=== PATIENT | female | born 1940 | race Hispanic/Latino ===

== ENCOUNTER 2017-12-19 00:26 | Inpatient (IN) | payer OTHER ==
[~2017-12-19] VITALS: Ht 152.4 cm; Wt 61.9 kg
[2017-12-19 01:04] LABS: MEAN CORPUSCULAR HEMOGLOBIN 26.5 pg (27.0-33.0); NUCLEATED RED BLOOD CELLS 0.1 % (0.0-0.19); RED CELL DISTRIBUTION WIDTH 18.3 % (11.0-15.5)
[2017-12-19 01:16] LABS: BASOPHILS % (AUTO) 0.2 % (0.0-5.0); CREATININE 1.1 mg/dL (0.5-1.5); EOSINOPHILS % (AUTO) 3.6 % (0.0-8.0); LYMPHOCYTES % (AUTO) 19.8 % (21.0-51.0); MEAN CORPUSCULAR HGB CONC 32.5 g/dL (32.0-36.0); MEAN CORPUSCULAR VOLUME 81.7 fL (79-99); MONOCYTES % (AUTO) 8.6 % (3.0-13.0); NEUTROPHILS % (AUTO) 67.8 % (40.0-77.0); PLATELET COUNT (AUTO) 125 K/uL (130-400); POTASSIUM 3.7 mmol/L (3.5-5.1); RED BLOOD CELL COUNT(AUTO) 2.82 MIL/uL (4.00-5.50); WHITE BLOOD COUNT (AUTO) 11.4 K/uL (4.8-10.8)
[2017-12-19] MEDS ORDERED: LEVOFLOXACIN 750 MG/D5W 150 ML 150 ML ONE (01:29)
[2017-12-19] MEDS ORDERED: SODIUM CHLORIDE 0.9% 1000ML 1,000 ML IV ONE (01:29)
[2017-12-19] MEDS ORDERED: ACETAMINOPHEN 325 MG TAB ONE (01:29)
[2017-12-19] MEDS ORDERED: ONDANSETRON HCL 4 MG/2 ML VIAL ONE (01:29)
[2017-12-19] MEDS ORDERED: MORPHINE SULFATE 4 MG/1ML SYG ONE (01:30)
[2017-12-19 01:31] LABS: INR 1.23 (0.85-1.15); PROTHROMBIN TIME 12.9 SEC (9.6-11.6)
[2017-12-19 01:35] LABS: ALBUMIN 2.5 g/dL (3.5-5.0); BILIRUBIN,TOTAL 2.3 mg/dL (0.2-1.0); TOTAL PROTEIN, SERUM 5.5 g/dL (6.0-8.3); TROPONIN I 0.06 ng/mL (0.00-0.06)
[2017-12-19] MEDS ORDERED: IBUPROFEN 400 MG TABLET ONE (01:37)
[2017-12-19 01:39] LABS: APPEARANCE,URINE Clear (CLEAR); BILIRUBIN,URINE Negative (NEGATIVE); COLOR,URINE Yellow (YELLOW); GLUCOSE, URINE (UA) Negative (NEGATIVE); KETONES,URINE Negative (NEGATIVE); LEUKOCYTE ESTERASE ,URINE Small (NEGATIVE); NITRATE,URINE Negative (NEGATIVE); OCCULT BLOOD,URINE Negative (NEGATIVE); PROTEIN,URINE Negative (NEGATIVE)
[2017-12-19 01:44] LABS: BACTERIA,URINE None Seen /HPF (None Seen); RBC,URINE None Seen /HPF (0-1); SQUAMOUS EPITHELIAL CELL,UR Rare /HPF (0-2); WBC,URINE 0-1 /HPF (0-1)
[2017-12-19 05:50] VITALS: BP 131/75
[2017-12-19] MEDS ORDERED: MORPHINE SULFATE 5 MG/ML VIAL IV PRN (06:15)
[2017-12-19] MEDS ORDERED: ONDANSETRON HCL 4 MG/2 ML VIAL IVP PRN (06:15)
[2017-12-19] MEDS: SODIUM CHLORIDE 0.9% 1000ML 1,000 ML IV SCH ×2 (07:03→19:43)
[2017-12-19 07:45] VITALS: BP 120/65
[2017-12-19] MEDS ORDERED: DIGO250T13 PO (08:03)
[2017-12-19] MEDS ORDERED: LOSA1TAB37 PO (08:03)
[2017-12-19] MEDS ORDERED: ALLO300T2 PO (08:03)
[2017-12-19] MEDS ORDERED: PNEUMOCOCCAL VACCINE POLYVALENT 0.5 ML/VIAL [PPV] IM ONE (08:45)
[2017-12-19] MEDS ORDERED: PHARMACY COMMUNICATION MISC SCH (08:45)
[2017-12-19] MEDS: PANTOPRAZOLE 40 MG/VIAL IVP SCH (09:56)
[2017-12-19 11:58] VITALS: BP 97/56
[2017-12-19] MEDS: METRONIDAZOLE 500MG/100ML BAG 100 ML IV SCH ×2 (14:34→21:53)
[2017-12-19 16:00] VITALS: BP 104/52
[2017-12-19 19:00] VITALS: BP 118/61
[2017-12-19] MEDS: [UNRECOGNIZED DRUG - MIXTURE] PO SCH (19:45)
[2017-12-19] MEDS: ALLOPURINOL 300 MG TABLET PO SCH (20:52)
[2017-12-20] VITALS (23 sets, daily range): BP systolic 106–141; BP diastolic 51–88
[2017-12-20] MEDS: SODIUM CHLORIDE 0.9% 1000ML 1,000 ML IV SCH ×3 (02:23→22:15)
[2017-12-20 05:03] LABS: BASOPHILS % (AUTO) 0.5 % (0.0-5.0); EOSINOPHILS % (AUTO) 8.2 % (0.0-8.0); LYMPHOCYTES % (AUTO) 25.2 % (21.0-51.0); MEAN CORPUSCULAR HEMOGLOBIN 26.9 pg (27.0-33.0); MEAN CORPUSCULAR HGB CONC 32.7 g/dL (32.0-36.0); MEAN CORPUSCULAR VOLUME 82.2 fL (79-99); MONOCYTES % (AUTO) 7.5 % (3.0-13.0); NEUTROPHILS % (AUTO) 58.6 % (40.0-77.0); NUCLEATED RED BLOOD CELLS 0.1 % (0.0-0.19); RED BLOOD CELL COUNT(AUTO) 2.07 MIL/uL (4.00-5.50); RED CELL DISTRIBUTION WIDTH 18.3 % (11.0-15.5)
[2017-12-20 05:04] LABS: CREATININE 1.1 mg/dL (0.5-1.5); POTASSIUM 4.4 mmol/L (3.5-5.1)
[2017-12-20 06:03] LABS: PLATELET COUNT (AUTO) 64 K/uL (130-400)
[2017-12-20 06:04] LABS: BASOPHILS % (AUTO) 0.5 % (0.0-5.0); LYMPHOCYTES % (AUTO) 24.6 % (21.0-51.0); MEAN CORPUSCULAR HEMOGLOBIN 27.3 pg (27.0-33.0); MEAN CORPUSCULAR HGB CONC 32.9 g/dL (32.0-36.0); MEAN CORPUSCULAR VOLUME 82.9 fL (79-99); MONOCYTES % (AUTO) 7.6 % (3.0-13.0); NEUTROPHILS % (AUTO) 59.3 % (40.0-77.0); PLATELET COUNT (AUTO) 74 K/uL (130-400); RED BLOOD CELL COUNT(AUTO) 2.17 MIL/uL (4.00-5.50); RED CELL DISTRIBUTION WIDTH 18.5 % (11.0-15.5); WHITE BLOOD COUNT (AUTO) 6.7 K/uL (4.8-10.8)
[2017-12-20] MEDS: METRONIDAZOLE 500MG/100ML BAG 100 ML IV SCH ×3 (06:50→21:00)
[2017-12-20] MEDS: PNEUMOCOCCAL VACCINE POLYVALENT 0.5 ML/VIAL [PPV] IM SCH (08:45)
[2017-12-20] MEDS: PANTOPRAZOLE 40 MG/VIAL IVP SCH (09:41)
[2017-12-20] MEDS: LOSARTAN/HYDROCHLOROTHIAZIDE 50-12.5MG TABLET PO SCH (14:42)
[2017-12-20] MEDS: DIGOXIN 250 MCG TABLET PO SCH (14:42)
[2017-12-20 14:47] LABS: HEMATOCRIT 29.2 % (36-48)
[2017-12-20] MEDS: ALLOPURINOL 300 MG TABLET PO SCH (21:00)
[2017-12-20] MEDS: [UNRECOGNIZED DRUG - MIXTURE] PO SCH (21:00)
[2017-12-20] MEDS: LEVOFLOXACIN 500 MG/D5W 100 ML 100 ML IV SCH (22:54)
[2017-12-21] VITALS: BP 148/71
[2017-12-21 04:00] VITALS: BP 138/69
[2017-12-21] MEDS: METRONIDAZOLE 500MG/100ML BAG 100 ML IV SCH ×3 (04:58→20:43)
[2017-12-21 07:00] VITALS: BP 143/67
[2017-12-21] MEDS: DIGOXIN 250 MCG TABLET PO SCH (08:50)
[2017-12-21] MEDS: SODIUM CHLORIDE 0.9% 1000ML 1,000 ML IV SCH ×2 (08:50→17:02)
[2017-12-21] MEDS: LOSARTAN/HYDROCHLOROTHIAZIDE 50-12.5MG TABLET PO SCH (08:50)
[2017-12-21] MEDS: PANTOPRAZOLE SODIUM 40 MG TABLET.DR PO SCH (08:50)
[2017-12-21 11:00] VITALS: BP 142/70
[2017-12-21 14:29] LABS: HEMATOCRIT 25.5 % (36-48)
[2017-12-21 16:00] VITALS: BP 126/72
[2017-12-21 19:00] VITALS: BP 154/69
[2017-12-21] MEDS: ALLOPURINOL 300 MG TABLET PO SCH (20:43)
[2017-12-21] MEDS: [UNRECOGNIZED DRUG - MIXTURE] PO SCH (20:43)
[2017-12-22] VITALS (7 sets, daily range): BP systolic 114–149; BP diastolic 60–80
[2017-12-22] MEDS: SODIUM CHLORIDE 0.9% 1000ML 1,000 ML IV SCH (04:13)
[2017-12-22] MEDS: METRONIDAZOLE 500MG/100ML BAG 100 ML IV SCH ×3 (05:10→22:07)
[2017-12-22 06:42] LABS: CREATININE 0.9 mg/dL (0.5-1.5); POTASSIUM 3.6 mmol/L (3.5-5.1)
[2017-12-22 08:23] LABS: BASOPHILS % (MANUAL) 1 % (0-2); EOSINOPHILS % (MANUAL) 12 % (1-6); LYMPHOCYTES % (MANUAL) 19 % (22-44); MAN.DIFF COMMENT-IMPRESSION MANUAL DIFFERENTIAL; MONOCYTES % (MANUAL) 8 % (2-9); REACTIVE LYMPHOCYTES 2 % (0-0); SEGMENTED NEUTROPHILS % 58 % (40-70)
[2017-12-22 08:24] LABS: PLATELET MORPHOLOGY COMMENT DECREASED
[2017-12-22 08:34] LABS: HEMATOCRIT 26.4 % (36-48); MEAN CORPUSCULAR HGB CONC 32.8 g/dL (32.0-36.0); MEAN CORPUSCULAR VOLUME 85.3 fL (79-99); NUCLEATED RED BLOOD CELLS 0.2 % (0.0-0.19); PLATELET COUNT (AUTO) 75 K/uL (130-400); RED CELL DISTRIBUTION WIDTH 18.3 % (11.0-15.5); WHITE BLOOD COUNT (AUTO) 4.4 K/uL (4.8-10.8)
[2017-12-22] MEDS ORDERED: NITR50CA PO (08:59)
[2017-12-22] MEDS: PANTOPRAZOLE SODIUM 40 MG TABLET.DR PO SCH (10:56)
[2017-12-22] MEDS: DIGOXIN 250 MCG TABLET PO SCH (10:56)
[2017-12-22] MEDS: LOSARTAN/HYDROCHLOROTHIAZIDE 50-12.5MG TABLET PO SCH (10:56)
[2017-12-22] MEDS: PNEUMOCOCCAL VACCINE POLYVALENT 0.5 ML/VIAL [PPV] IM SCH (10:59)
[2017-12-22 14:01] LABS: HEMATOCRIT 27.3 % (36-48)
[2017-12-22] MEDS: LEVOFLOXACIN 500 MG/D5W 100 ML 100 ML IV SCH (20:52)
[2017-12-22] MEDS: ALLOPURINOL 300 MG TABLET PO SCH (20:52)
[2017-12-22] MEDS: [UNRECOGNIZED DRUG - MIXTURE] PO SCH (21:00)
[2017-12-22] MEDS ORDERED: DIPHENOXYLATE HCL/ATROPINE 2.5/0.025 MG TAB PO ONE (21:15)
[2017-12-23 01:59] LABS: HEMATOCRIT 25.2 % (36-48)
[2017-12-23 03:49] VITALS: BP 105/55
[2017-12-23] MEDS: METRONIDAZOLE 500MG/100ML BAG 100 ML IV SCH (06:00)
[2017-12-23] MEDS: PANTOPRAZOLE SODIUM 40 MG TABLET.DR PO SCH (06:59)
[2017-12-23 09:07] VITALS: BP 127/64
[2017-12-23] MEDS: LOSARTAN/HYDROCHLOROTHIAZIDE 50-12.5MG TABLET PO SCH (09:24)
[2017-12-23] MEDS: DIGOXIN 250 MCG TABLET PO SCH (09:25)
[2017-12-23 11:47] VITALS: BP 136/69
== END 2017-12-23 12:15 | disposition home or self-care (01) | DRG 384 ==
LOC: EDH 00:26 → EDHIP 00:27 → 3DH 05:28
PROVIDERS: ADMIT Internal Medicine; ATTEND Internal Medicine
PROC: 3E02340 Introduction of Influenza Vaccine into Muscle, Percutaneous Approach (ICD-10-PCS; 2017-12-19)
PROC: 3E0234Z Introduction of Serum, Toxoid and Vaccine into Muscle, Percutaneous Approach (ICD-10-PCS; 2017-12-19)
PROC: 0DB68ZX Excision of Stomach, Via Natural or Artificial Opening Endoscopic, Diagnostic (ICD-10-PCS; principal; 2017-12-20)
PROC: 30233N1 Transfusion of Nonautologous Red Blood Cells into Peripheral Vein, Percutaneous Approach (ICD-10-PCS; 2017-12-20)
DX: K25.9 Gastric ulcer, unspecified as acute or chronic, without hemorrhage or perforation (principal); N39.0 Urinary tract infection, site not specified; D62 Acute posthemorrhagic anemia; K52.9 Noninfective gastroenteritis and colitis, unspecified; K92.1 Melena; N20.0 Calculus of kidney; I10 Essential (primary) hypertension; K31.89 Other diseases of stomach and duodenum; M81.0 Age-related osteoporosis without current pathological fracture; Z88.0 Allergy status to penicillin; Z91.018 Allergy to other foods
CPT/HCPCS: 36415; 36430; 43239; 71045; 74176; 80048; 80053; 80162; 81001; 82270; 82550; 83605; 83630; 83874; 84484; 85014; 85018; 85025; 85610; 85730; 86850; 86900; 86901; 86922; 87040; 87046; 87077; 87088; 87186; 87324; 88305; 90732; 93005; 99291; C9113; J1956; J2270; J2405; J3490; J7030; P9016; Q2038

== ENCOUNTER 2017-12-31 06:58 | Inpatient (IN) | payer OTHER ==
[2017-12-31] VITALS (17 sets, daily range): BP systolic 72–105; BP diastolic 39–62
[~2017-12-31] VITALS: Ht 144.8 cm; Wt 81.2 kg
[~2017-12-31 06:58] MED LIST: ALLO300T2 PO; DIGO250T13 PO; LOSA1TAB37 PO; NITR50CA PO
[2017-12-31 07:21] LABS: BASOPHILS % (AUTO) 1.4 % (0.0-5.0); EOSINOPHILS % (AUTO) 2.9 % (0.0-8.0); HEMATOCRIT 27.7 % (36-48); LYMPHOCYTES % (AUTO) 25.5 % (21.0-51.0); MEAN CORPUSCULAR HEMOGLOBIN 27.7 pg (27.0-33.0); MEAN CORPUSCULAR HGB CONC 32.7 g/dL (32.0-36.0); MEAN CORPUSCULAR VOLUME 84.6 fL (79-99); MONOCYTES % (AUTO) 6.4 % (3.0-13.0); NEUTROPHILS % (AUTO) 63.8 % (40.0-77.0); NUCLEATED RED BLOOD CELLS 0.1 % (0.0-0.19); PLATELET COUNT (AUTO) 102 K/uL (130-400); RED BLOOD CELL COUNT(AUTO) 3.27 MIL/uL (4.00-5.50); RED CELL DISTRIBUTION WIDTH 17.2 % (11.0-15.5); WHITE BLOOD COUNT (AUTO) 5.1 K/uL (4.8-10.8)
[2017-12-31] MEDS ORDERED: ONDANSETRON HCL 4 MG/2 ML VIAL ONE (07:23)
[2017-12-31] MEDS ORDERED: MORPHINE SULFATE 8 MG/ML VIAL ONE ×2 (07:24→09:33)
[2017-12-31 07:29] LABS: CREATININE 1.1 mg/dL (0.5-1.5); POTASSIUM 3.7 mmol/L (3.5-5.1)
[2017-12-31 07:34] LABS: ALBUMIN 2.3 g/dL (3.5-5.0); BILIRUBIN,TOTAL 2.5 mg/dL (0.2-1.0); TOTAL PROTEIN, SERUM 5.5 g/dL (6.0-8.3)
[2017-12-31 07:47] LABS: INR 1.31 (0.85-1.15); PROTHROMBIN TIME 13.7 SEC (9.6-11.6)
[2017-12-31 08:54] LABS: APPEARANCE,URINE Clear (CLEAR); BILIRUBIN,URINE Small (NEGATIVE); COLOR,URINE Dark Yellow (YELLOW); GLUCOSE, URINE (UA) Negative (NEGATIVE); KETONES,URINE Trace mg/dL (NEGATIVE); LEUKOCYTE ESTERASE ,URINE Small (NEGATIVE); NITRATE,URINE Negative (NEGATIVE); OCCULT BLOOD,URINE Negative (NEGATIVE); PH,URINE 6.5 (5.0-8.0); PROTEIN,URINE Negative (NEGATIVE)
[2017-12-31 09:12] LABS: BACTERIA,URINE Rare /HPF (None Seen); RBC,URINE 0-1 /HPF (0-1); SQUAMOUS EPITHELIAL CELL,UR Rare /HPF (0-2); WBC,URINE 0-1 /HPF (0-1)
[2017-12-31] MEDS: SODIUM CHLORIDE 0.9% 1000ML 1,000 ML IV SCH ×2 (09:27→18:19)
[2017-12-31] MEDS ORDERED: MORPHINE SULFATE 2 MG/ML 1ML SYG IV PRN (09:30)
[2017-12-31] MEDS: LEVOFLOXACIN 500 MG/D5W 100 ML 100 ML IV SCH (09:30)
[2017-12-31] MEDS ORDERED: SODIUM CHLORIDE 0.9% 500ML 500 ML IV ONE (09:44)
[2017-12-31] MEDS ORDERED: SODIUM CHLORIDE 0.9% 1000ML 1,000 ML IV ONE ×2 (12:10→14:10)
[2017-12-31] MEDS ORDERED: LEVOFLOXACIN 500 MG/D5W 100 ML 100 ML ONE (13:07)
[2017-12-31] MEDS: METRONIDAZOLE 500MG/100ML BAG 100 ML IV SCH ×2 (14:00→21:01)
[2017-12-31 14:56] LABS: HEMATOCRIT 24.5 % (36-48)
[2017-12-31] MEDS ORDERED: OCTREOTIDE ACETATE 1,000 MCG in SODIUM CHLORIDE 0.9% 95 ML IV SCH (17:30)
[2017-12-31] MEDS: ALBUMIN (HUMAN) 5% 250 ML IV SCH (18:18)
[2017-12-31] MEDS: PANTOPRAZOLE SODIUM 80 MG in SODIUM CHLORIDE 0.9% 100 ML IV SCH (18:18)
[2017-12-31 18:56] LABS: HEMATOCRIT 26.8 % (36-48)
[2017-12-31] MEDS: ONDANSETRON HCL 4 MG/2 ML VIAL IV PRN (23:09)
[2017-12-31] MEDS: HYDROMORPHONE 1 MG/1 ML AMP IVP PRN (23:10)
[2017-12-31 23:46] LABS: HEMATOCRIT 25.9 % (36-48)
[2018-01-01] VITALS (47 sets, daily range): BP systolic 68–137; BP diastolic 38–67
[2018-01-01] MEDS: ALBUMIN (HUMAN) 5% 250 ML IV SCH ×3 (00:24→16:38)
[2018-01-01] MEDS ORDERED: NOREPINEPHRINE 4MG/NS 250ML 4 MG/250 ML IV.SOLN IV SCH (01:00)
[2018-01-01] MEDS ORDERED: SODIUM CHLORIDE 0.9% 1000ML 1,000 ML IV SCH (01:00)
[2018-01-01] MEDS ORDERED: VANCOMYCIN PROTOCOL PER PHARMACY IV SCH (01:00)
[2018-01-01] MEDS ORDERED: SODIUM CHLORIDE 0.9% 1000ML 1,000 ML IV ONE (01:00)
[2018-01-01 01:09] LABS: BASOPHILS % (AUTO) 2.7 % (0.0-5.0); EOSINOPHILS % (AUTO) 0.1 % (0.0-8.0); HEMATOCRIT 24.2 % (36-48); LYMPHOCYTES % (AUTO) 6.8 % (21.0-51.0); MEAN CORPUSCULAR HGB CONC 31.4 g/dL (32.0-36.0); MEAN CORPUSCULAR VOLUME 85.9 fL (79-99); MONOCYTES % (AUTO) 6.8 % (3.0-13.0); NEUTROPHILS % (AUTO) 83.6 % (40.0-77.0); NUCLEATED RED BLOOD CELLS 0.1 % (0.0-0.19); PLATELET COUNT (AUTO) 15 K/uL (130-400); RED BLOOD CELL COUNT(AUTO) 2.81 MIL/uL (4.00-5.50); RED CELL DISTRIBUTION WIDTH 17.2 % (11.0-15.5); WHITE BLOOD COUNT (AUTO) 8.6 K/uL (4.8-10.8)
[2018-01-01] MEDS ORDERED: NOREPINEPHRINE 4MG/NS 250ML 250 ML IV SCH (01:15)
[2018-01-01 04:12] LABS: ABG BASE EXCESS -5.9 mmol/L (-2.0-3.0); ABG HCO3 19.6 mmol/L (21.0-28.0); ABG PCO2 39 mmHg (32-45)
[2018-01-01] MEDS: SODIUM CHLORIDE 0.9% 1000ML 1,000 ML IV SCH ×3 (04:32→22:26)
[2018-01-01] MEDS: METRONIDAZOLE 500MG/100ML BAG 100 ML IV SCH ×3 (05:09→21:10)
[2018-01-01] MEDS ORDERED: VANCOMYCIN 1.5 GM in SODIUM CHLORIDE 0.9% 250 ML IV SCH (06:30)
[2018-01-01] MEDS ORDERED: COMPOUND IV REFRIGERATED 1 EACH IVSOLN MISC PRN (06:45)
[2018-01-01 06:51] LABS: ALBUMIN 2.4 g/dL (3.5-5.0); BILIRUBIN,TOTAL 2.9 mg/dL (0.2-1.0); CREATININE 1.5 mg/dL (0.5-1.5); MAGNESIUM 1.3 mg/dL (1.80-2.40); PHOSPHORUS 3.6 mg/dL (2.5-4.9); POTASSIUM 4.7 mmol/L (3.5-5.1); TOTAL PROTEIN, SERUM 4.9 g/dL (6.0-8.3)
[2018-01-01 06:59] LABS: INR 1.47 (0.85-1.15); PARTIAL THROMBOPLASTIN TIME 39.7 SEC (26.3-35.5); PROTHROMBIN TIME 15.3 SEC (9.6-11.6)
[2018-01-01 07:05] LABS: BASOPHILS % (AUTO) 0.4 % (0.0-5.0); EOSINOPHILS % (AUTO) 0.1 % (0.0-8.0); HEMATOCRIT 24.3 % (36-48); LYMPHOCYTES % (AUTO) 10.3 % (21.0-51.0); MEAN CORPUSCULAR HEMOGLOBIN 28.3 pg (27.0-33.0); MEAN CORPUSCULAR HGB CONC 32.7 g/dL (32.0-36.0); MEAN CORPUSCULAR VOLUME 86.6 fL (79-99); MONOCYTES % (AUTO) 8.3 % (3.0-13.0); NEUTROPHILS % (AUTO) 80.9 % (40.0-77.0); RED BLOOD CELL COUNT(AUTO) 2.81 MIL/uL (4.00-5.50); RED CELL DISTRIBUTION WIDTH 17.4 % (11.0-15.5); WHITE BLOOD COUNT (AUTO) 9.3 K/uL (4.8-10.8)
[2018-01-01 07:10] LABS: PLATELET COUNT (AUTO) 69 K/uL (130-400)
[2018-01-01] MEDS: PANTOPRAZOLE SODIUM 80 MG in SODIUM CHLORIDE 0.9% 100 ML IV SCH (08:31)
[2018-01-01] MEDS ORDERED: PANTOPRAZOLE SODIUM 40 MG TABLET.DR PO SCH (09:00)
[2018-01-01] MEDS: LEVOFLOXACIN 500 MG/D5W 100 ML 100 ML IV SCH (09:44)
[2018-01-01 12:23] LABS: HEMATOCRIT 23.5 % (36-48)
[2018-01-01] MEDS ORDERED: MAGNESIUM 4GM PREMIX 100ML 100 ML IV ONE (12:45)
[2018-01-01] MEDS: HYDROMORPHONE 1 MG/1 ML AMP IVP PRN ×2 (12:53→16:48)
[2018-01-01] MEDS: PANTOPRAZOLE 40 MG/VIAL IVP SCH (20:04)
[2018-01-02] VITALS (26 sets, daily range): BP systolic 104–171; BP diastolic 38–90
[2018-01-02 00:35] LABS: HEMATOCRIT 21.5 % (36-48)
[2018-01-02] MEDS: ALBUMIN (HUMAN) 5% 250 ML IV SCH (01:09)
[2018-01-02] MEDS: HYDROMORPHONE 1 MG/1 ML AMP IVP PRN ×2 (02:48→23:58)
[2018-01-02] MEDS: METRONIDAZOLE 500MG/100ML BAG 100 ML IV SCH (05:04)
[2018-01-02] MEDS: SODIUM CHLORIDE 0.9% 1000ML 1,000 ML IV SCH ×3 (05:04→18:31)
[2018-01-02 05:54] LABS: BASOPHILS % (AUTO) 0.1 % (0.0-5.0); EOSINOPHILS % (AUTO) 0.4 % (0.0-8.0); LYMPHOCYTES % (AUTO) 11.8 % (21.0-51.0); MEAN CORPUSCULAR HEMOGLOBIN 27.8 pg (27.0-33.0); MEAN CORPUSCULAR HGB CONC 32.3 g/dL (32.0-36.0); MEAN CORPUSCULAR VOLUME 86.1 fL (79-99); NEUTROPHILS % (AUTO) 76.7 % (40.0-77.0); NUCLEATED RED BLOOD CELLS 0.1 % (0.0-0.19); PLATELET COUNT (AUTO) 65 K/uL (130-400); RED BLOOD CELL COUNT(AUTO) 2.34 MIL/uL (4.00-5.50); RED CELL DISTRIBUTION WIDTH 17.4 % (11.0-15.5); WHITE BLOOD COUNT (AUTO) 5.6 K/uL (4.8-10.8)
[2018-01-02 06:03] LABS: HEMATOCRIT 20.2 % (36-48)
[2018-01-02 06:09] LABS: INR 1.74 (0.85-1.15); PARTIAL THROMBOPLASTIN TIME 59.9 SEC (26.3-35.5); PROTHROMBIN TIME 18.1 SEC (9.6-11.6)
[2018-01-02 06:13] LABS: ALBUMIN 2.5 g/dL (3.5-5.0); BILIRUBIN,TOTAL 2.9 mg/dL (0.2-1.0); CREATININE 1.8 mg/dL (0.5-1.5); MAGNESIUM 2.2 mg/dL (1.80-2.40); POTASSIUM 4.3 mmol/L (3.5-5.1); TOTAL PROTEIN, SERUM 4.6 g/dL (6.0-8.3)
[2018-01-02] MEDS ORDERED: SODIUM CHLORIDE 0.9% 250 ML IV ONE ×2 (08:15→14:32)
[2018-01-02] MEDS ORDERED: VANCOMYCIN 1GM+NS 250ML 250 ML IV SCH (09:00)
[2018-01-02] MEDS: PANTOPRAZOLE 40 MG/VIAL IVP SCH ×2 (09:27→21:16)
[2018-01-02] MEDS: LEVOFLOXACIN 500 MG/D5W 100 ML 100 ML IV SCH (09:27)
[2018-01-02] MEDS: LACTATED RINGERS 1000ML 1,000 ML IV SCH (13:15)
[2018-01-02] MEDS ORDERED: CLINIMIX E 5%-15% 2,000 ML IV SCH (14:00)
[2018-01-02] MEDS: MEROPENEM 1 GM VIAL IVP SCH (14:36)
[2018-01-02 14:54] LABS: HEMATOCRIT 27.4 % (36-48)
[2018-01-02] MEDS: VANCOMYCIN 1GM+NS 250ML 250 ML IV SCH (21:16)
[2018-01-02 23:04] LABS: HEMATOCRIT 26.1 % (36-48)
[2018-01-03] VITALS (26 sets, daily range): BP systolic 128–184; BP diastolic 59–101
[2018-01-03] MEDS: SODIUM CHLORIDE 0.9% 1000ML 1,000 ML IV SCH ×2 (01:11→07:39)
[2018-01-03] MEDS: MEROPENEM 1 GM VIAL IVP SCH ×2 (02:16→15:24)
[2018-01-03] MEDS: LACTATED RINGERS 1000ML 1,000 ML IV SCH (02:35)
[2018-01-03 03:39] LABS: BASOPHILS % (AUTO) 0.1 % (0.0-5.0); EOSINOPHILS % (AUTO) 0.2 % (0.0-8.0); HEMATOCRIT 26.2 % (36-48); LYMPHOCYTES % (AUTO) 6.6 % (21.0-51.0); MEAN CORPUSCULAR HEMOGLOBIN 27.6 pg (27.0-33.0); MEAN CORPUSCULAR HGB CONC 32.1 g/dL (32.0-36.0); MONOCYTES % (AUTO) 11.8 % (3.0-13.0); NEUTROPHILS % (AUTO) 81.3 % (40.0-77.0); NUCLEATED RED BLOOD CELLS 0.7 % (0.0-0.19); PLATELET COUNT (AUTO) 61 K/uL (130-400); RED BLOOD CELL COUNT(AUTO) 3.05 MIL/uL (4.00-5.50); WHITE BLOOD COUNT (AUTO) 7.3 K/uL (4.8-10.8)
[2018-01-03 03:58] LABS: ALBUMIN 2.5 g/dL (3.5-5.0); BILIRUBIN,TOTAL 4.8 mg/dL (0.2-1.0); CREATININE 1.7 mg/dL (0.5-1.5); MAGNESIUM 2.4 mg/dL (1.80-2.40); PHOSPHORUS 2.2 mg/dL (2.5-4.9); POTASSIUM 4.1 mmol/L (3.5-5.1)
[2018-01-03 04:20] LABS: ABG BASE EXCESS -9.7 mmol/L (-2.0-3.0); ABG HCO3 14.2 mmol/L (21.0-28.0); ABG OXYGEN SATURATION 96.1 % (95.0-99.0); ABG PCO2 27 mmHg (32-45)
[2018-01-03 04:35] LABS: INR 1.58 (0.85-1.15); PROTHROMBIN TIME 16.4 SEC (9.6-11.6)
[2018-01-03] MEDS ORDERED: PHARMACY COMMUNICATION MISC SCH (09:00)
[2018-01-03] MEDS ORDERED: FUROSEMIDE 10 MG/ML 2ML VIAL IV SCH (09:00)
[2018-01-03] MEDS ORDERED: PANTOPRAZOLE SODIUM 40 MG TABLET.DR PO SCH (09:00)
[2018-01-03] MEDS: FAMOTIDINE/PF 20 MG/2 ML VIAL IV SCH (09:21)
[2018-01-03] MEDS: PHYTONADIONE 10 MG in SODIUM CHLORIDE 0.9% 50 ML IV SCH (09:33)
[2018-01-03] MEDS: HYDROMORPHONE 1 MG/1 ML AMP IVP PRN ×2 (09:46→23:44)
[2018-01-03] MEDS: ONDANSETRON HCL 4 MG/2 ML VIAL IV PRN (09:50)
[2018-01-03] MEDS ORDERED: GLUCAGON 1MG KIT 1 MG ML IM PRN (11:45)
[2018-01-03] MEDS ORDERED: DEXTROSE 50%-WATER 50 ML DISP.SYRIN IV PRN (11:45)
[2018-01-03] MEDS: INSULIN HUMULIN R 100 UNIT/ML 3ML SQ SCH ×2 (12:25→18:00)
[2018-01-03] MEDS: CLINIMIX E 5%-15% 2,000 ML IV SCH (18:03)
[2018-01-03] MEDS: VANCOMYCIN 1GM+NS 250ML 250 ML IV SCH (18:43)
[2018-01-03] MEDS: FUROSEMIDE 10 MG/ML 2ML VIAL IV SCH (20:18)
[2018-01-03] MEDS ORDERED: METOPROLOL TARTRATE 1 MG/ML 5ML VIAL IV PRN (22:00)
[2018-01-03] MEDS ORDERED: METOPROLOL TARTRATE 1 MG/ML 5ML VIAL IV ONE (22:06)
[2018-01-04] VITALS (24 sets, daily range): BP systolic 121–164; BP diastolic 70–111
[2018-01-04] MEDS: MEROPENEM 1 GM VIAL IVP SCH ×2 (01:27→14:24)
[2018-01-04 03:30] LABS: BASOPHILS % (AUTO) 0.5 % (0.0-5.0); EOSINOPHILS % (AUTO) 0.9 % (0.0-8.0); HEMATOCRIT 28.1 % (36-48); LYMPHOCYTES % (AUTO) 10.5 % (21.0-51.0); MEAN CORPUSCULAR HEMOGLOBIN 28.2 pg (27.0-33.0); MEAN CORPUSCULAR HGB CONC 32.9 g/dL (32.0-36.0); MEAN CORPUSCULAR VOLUME 85.7 fL (79-99); NEUTROPHILS % (AUTO) 73.1 % (40.0-77.0); NUCLEATED RED BLOOD CELLS 0.6 % (0.0-0.19); PLATELET COUNT (AUTO) 63 K/uL (130-400); RED BLOOD CELL COUNT(AUTO) 3.28 MIL/uL (4.00-5.50); RED CELL DISTRIBUTION WIDTH 17.6 % (11.0-15.5); WHITE BLOOD COUNT (AUTO) 9.7 K/uL (4.8-10.8)
[2018-01-04 03:41] LABS: CREATININE 1.7 mg/dL (0.5-1.5); POTASSIUM 4.3 mmol/L (3.5-5.1)
[2018-01-04] MEDS: INSULIN HUMULIN R 100 UNIT/ML 3ML SQ SCH ×4 (06:00→17:46)
[2018-01-04] MEDS: HYDROMORPHONE 1 MG/1 ML AMP IVP PRN ×2 (08:10→17:20)
[2018-01-04] MEDS: FUROSEMIDE 10 MG/ML 2ML VIAL IV SCH ×2 (08:11→21:22)
[2018-01-04] MEDS: FAMOTIDINE/PF 20 MG/2 ML VIAL IV SCH (08:11)
[2018-01-04] MEDS ORDERED: FLUCONAZOLE 400 MG/NS 200 ML 200 ML IV SCH (09:15)
[2018-01-04] MEDS: FAT EMULSIONS 20% 250ML 250 ML IV SCH (10:00)
[2018-01-04] MEDS ORDERED: FAT EMULSIONS 20% 250ML 250 ML IV SCH (10:00)
[2018-01-04] MEDS: PHYTONADIONE 10 MG in SODIUM CHLORIDE 0.9% 50 ML IV SCH (10:45)
[2018-01-04 11:57] LABS: INR 1.57 (0.85-1.15); PARTIAL THROMBOPLASTIN TIME 47.3 SEC (26.3-35.5); PROTHROMBIN TIME 16.3 SEC (9.6-11.6)
[2018-01-04] MEDS ORDERED: HYDROMORPHONE 1 MG/1 ML AMP IVP ONE (17:30)
[2018-01-04] MEDS: CLINIMIX E 5%-15% 2,000 ML IV SCH (17:43)
[2018-01-05] VITALS (23 sets, daily range): BP systolic 99–155; BP diastolic 54–108
[2018-01-05] MEDS: INSULIN HUMULIN R 100 UNIT/ML 3ML SQ SCH ×5 (00:48→23:47)
[2018-01-05] MEDS: MEROPENEM 1 GM VIAL IVP SCH ×3 (00:48→14:00)
[2018-01-05] MEDS: HYDROMORPHONE 1 MG/1 ML AMP IVP PRN ×4 (03:13→23:59)
[2018-01-05 04:00] LABS: BASOPHILS % (AUTO) 0.1 % (0.0-5.0); EOSINOPHILS % (AUTO) 1.6 % (0.0-8.0); HEMATOCRIT 29.2 % (36-48); MEAN CORPUSCULAR HEMOGLOBIN 27.1 pg (27.0-33.0); MEAN CORPUSCULAR HGB CONC 31.9 g/dL (32.0-36.0); MEAN CORPUSCULAR VOLUME 85.1 fL (79-99); MONOCYTES % (AUTO) 17.9 % (3.0-13.0); NEUTROPHILS % (AUTO) 65.4 % (40.0-77.0); NUCLEATED RED BLOOD CELLS 1.4 % (0.0-0.19); PLATELET COUNT (AUTO) 53 K/uL (130-400); RED BLOOD CELL COUNT(AUTO) 3.43 MIL/uL (4.00-5.50); RED CELL DISTRIBUTION WIDTH 17.3 % (11.0-15.5); WHITE BLOOD COUNT (AUTO) 16.4 K/uL (4.8-10.8)
[2018-01-05 04:10] LABS: CREATININE 1.9 mg/dL (0.5-1.5); POTASSIUM 4.6 mmol/L (3.5-5.1)
[2018-01-05] MEDS: FAMOTIDINE/PF 20 MG/2 ML VIAL IV SCH (08:32)
[2018-01-05] MEDS: FLUCONAZOLE 200 MG/NS 100 ML 100 ML IV SCH (08:32)
[2018-01-05] MEDS: FUROSEMIDE 10 MG/ML 2ML VIAL IV SCH (08:33)
[2018-01-05] MEDS: PHYTONADIONE 10 MG in SODIUM CHLORIDE 0.9% 50 ML IV SCH (10:43)
[2018-01-05 11:55] LABS: INR 1.67 (0.85-1.15); PARTIAL THROMBOPLASTIN TIME 47.8 SEC (26.3-35.5); PROTHROMBIN TIME 17.4 SEC (9.6-11.6)
[2018-01-05] MEDS: CLINIMIX E 5%-15% 2,000 ML IV SCH (19:49)
[2018-01-06] VITALS (21 sets, daily range): BP systolic 81–158; BP diastolic 33–99
[2018-01-06] MEDS: MEROPENEM 1 GM VIAL IVP SCH ×2 (01:31→14:28)
[2018-01-06] MEDS: HYDROMORPHONE 1 MG/1 ML AMP IVP PRN ×5 (03:53→15:17)
[2018-01-06 04:00] LABS: HEMATOCRIT 32.2 % (36-48); MEAN CORPUSCULAR HEMOGLOBIN 26.7 pg (27.0-33.0); MEAN CORPUSCULAR HGB CONC 30.1 g/dL (32.0-36.0); MEAN CORPUSCULAR VOLUME 88.8 fL (79-99); NUCLEATED RED BLOOD CELLS 1.8 % (0.0-0.19); PLATELET COUNT (AUTO) 44 K/uL (130-400); RED BLOOD CELL COUNT(AUTO) 3.63 MIL/uL (4.00-5.50); RED CELL DISTRIBUTION WIDTH 17.9 % (11.0-15.5); WHITE BLOOD COUNT (AUTO) 21.5 K/uL (4.8-10.8)
[2018-01-06 04:17] LABS: ALBUMIN 1.7 g/dL (3.5-5.0); BILIRUBIN,TOTAL 9.4 mg/dL (0.2-1.0); CREATININE 2.1 mg/dL (0.5-1.5); MAGNESIUM 2.3 mg/dL (1.80-2.40); PHOSPHORUS 4.3 mg/dL (2.5-4.9); POTASSIUM 5.3 mmol/L (3.5-5.1); TOTAL PROTEIN, SERUM 4.8 g/dL (6.0-8.3)
[2018-01-06] MEDS: INSULIN HUMULIN R 100 UNIT/ML 3ML SQ SCH ×2 (06:00→11:24)
[2018-01-06] MEDS: FLUCONAZOLE 200 MG/NS 100 ML 100 ML IV SCH (08:08)
[2018-01-06] MEDS: FAMOTIDINE/PF 20 MG/2 ML VIAL IV SCH (08:08)
[2018-01-06] MEDS: FAT EMULSIONS 20% 250ML 250 ML IV SCH (09:31)
[2018-01-06] MEDS ORDERED: HYDROMORPHONE PCA 10 MG/50 ML 50 ML IV PRN (15:15)
[2018-01-06] MEDS ORDERED: HYDROMORPHONE 4MG/ML 1ML VIAL IVP PRN (15:15)
[2018-01-06] MEDS ORDERED: SODIUM CHLORIDE 0.9% 250 ML IV ONE (22:42)
== END 2018-01-07 01:01 | disposition expired | DRG 871 ==
LOC: EDH 06:58 → EDHIP 06:59 → 2BH 17:42 → 4BH 01-06 19:02
PROVIDERS: ADMIT Hospitalist; ATTEND Hospitalist
PROC: 30233L1 Transfusion of Nonautologous Fresh Plasma into Peripheral Vein, Percutaneous Approach (ICD-10-PCS; principal; 2018-01-01)
PROC: 30233N1 Transfusion of Nonautologous Red Blood Cells into Peripheral Vein, Percutaneous Approach (ICD-10-PCS; 2018-01-01)
PROC: 30233K1 Transfusion of Nonautologous Frozen Plasma into Peripheral Vein, Percutaneous Approach (ICD-10-PCS; 2018-01-01)
PROC: 02H633Z Insertion of Infusion Device into Right Atrium, Percutaneous Approach (ICD-10-PCS; 2018-01-01)
DX: A41.9 Sepsis, unspecified organism (principal); E43 Unspecified severe protein-calorie malnutrition; K63.1 Perforation of intestine (nontraumatic); K65.1 Peritoneal abscess; N39.0 Urinary tract infection, site not specified; D62 Acute posthemorrhagic anemia; D68.9 Coagulation defect, unspecified; G93.40 Encephalopathy, unspecified; K76.6 Portal hypertension; M48.50XA Collapsed vertebra, not elsewhere classified, site unspecified, initial encounter for fracture; R18.8 Other ascites; D64.9 Anemia, unspecified; D69.6 Thrombocytopenia, unspecified; E86.9 Volume depletion, unspecified; G89.29 Other chronic pain; K25.9 Gastric ulcer, unspecified as acute or chronic, without hemorrhage or perforation; I10 Essential (primary) hypertension; K57.90 Diverticulosis of intestine, part unspecified, without perforation or abscess without bleeding; K66.8 Other specified disorders of peritoneum; K74.69 Other cirrhosis of liver; K75.81 Nonalcoholic steatohepatitis (NASH); K80.20 Calculus of gallbladder without cholecystitis without obstruction; K82.8 Other specified diseases of gallbladder; M81.0 Age-related osteoporosis without current pathological fracture; Z51.5 Encounter for palliative care; Z66 Do not resuscitate; Z68.38 Body mass index [BMI] 38.0-38.9, adult; Z74.01 Bed confinement status; Z88.0 Allergy status to penicillin; Z91.018 Allergy to other foods; Z87.11 Personal history of peptic ulcer disease
CPT/HCPCS: 36415; 36600; 71045; 74176; 76705; 80048; 80053; 80162; 81001; 82140; 82270; 82803; 82948; 83605; 83690; 83735; 84100; 85014; 85018; 85025; 85027; 85610; 85730; 86850; 86900; 86901; 86922; 86927; 87040; 87077; 87088; 87186; 93005; 93306; A4218; A4344; C1751; C9113; J1170; J1450; J1815; J1940; J1956; J2185; J2270; J2354; J2405; J3370; J3430; J3475; J3490; J7030; J7040; P9016; P9017; P9045